=== PATIENT | female | born 1965 | race Caucasian/White ===

== ENCOUNTER 2017-02-14 11:11 | Emergency (ER) | payer BC, OTHER ==
[2017-02-14] MEDS ORDERED: Albuterol/Ipratropium 3.0-0.5 MG/3 ML Neb Soln NEB ONE (11:22)
--- NOTE | 2017-02-14 12:19 | EDM.PDOC ---
ED HPI GENERAL MEDICAL PROBLEM - General Chief Complaint: Respiratory Problem Stated Complaint: SHORTNESS OF BREATH Time Seen by Provider: 02/14/17 11:30 Source of Information: Reports: Patient, Provider History Limitations: Reports: No Limitations - History of Present Illness INITIAL COMMENTS - FREE TEXT/NARRATIVE: 51-year-old female who has had shortness of breath for the last 48 hours, nasal congestion and postnasal drip, last night felt so short of breath she felt like she was going to faint. This morning when she went into the clinic to be checked and just walking in from the parking lot made her so short of breath she was having trouble talking, felt very anxious so they sent her over to the emergency room. Her O2 saturations were 98%. She had no chest pain, jaw pain, nausea or referred pain to the arms or neck. She appeared somewhat pale, very anxious but did not have significantly increased respiratory rate. No fevers or chills, no nausea or vomiting. She has no other cold symptoms. Onset: Unknown/Unsure (Symptoms have been worsening over the past several days) Severity: Moderate Associated Symptoms: Reports: Other (Dizzy, near syncope). Denies: Fever/Chills , Headaches - Related Data Allergies Allergy/AdvReac Type Severity Reaction Status Date / Time ceftriaxone [From Rocephin] Allergy Hives Verified 02/14/17 11:24 Home Meds: Home Meds NK [No Known Home Meds] 02/14/17 [History] Past Medical History HEENT History: Reports: Impaired Vision - Infectious Disease History Infectious Disease History: Reports: Chicken Pox - Past Surgical History GI Surgical History: Reports: Cholecystectomy Female Surgical History: Reports: Section, D&C, Hysterectomy Social & Family History - Tobacco Use Smoking Status *Q: Never Smoker - Caffeine Use Caffeine Use: Reports: None - Recreational Drug Use Recreational Drug Use: No ED ROS GENERAL - Review of Systems Review Of Systems: See Below Constitutional: Reports: Malaise. Denies: Fever, Chills HEENT: Reports: Rhinitis. Denies: Eye Pain, Throat Pain, Vision Change Respiratory: Reports: Shortness of Breath, Wheezing. Denies: Cough Cardiovascular: Denies: Chest Pain, Edema, Palpitations GI/Abdominal: Denies: Nausea, Vomiting Skin: Reports: Pallor Neurological: Reports: Dizziness. Denies: Headache Psychiatric: Reports: Anxiety ED EXAM, GENERAL - Physical Exam Exam: See Below Exam Limited By: No Limitations General Appearance: Alert, Anxious, Mild Distress (Initially on arrival she acted very dyspneic and anxious, O2 saturations 98%) Throat/Mouth: Normal Inspection Head: Atraumatic Respiratory/Chest: Wheezing (Initial exam revealed bilateral scattered expiratory wheezes but underlying very good air movement to the bases) Cardiovascular: Regular Rate, Rhythm, Tachycardia GI/Abdominal: Non-Tender Extremities: No: Pedal Edema (No significant lower extremity edema is present) Neurological: Alert, Oriented Psychiatric: Anxious Skin Exam: Pallor Course - Vital Signs Last Recorded V/S: Last Vital Signs Temp 98.6 F 02/14/17 15:50 Pulse 71 02/14/17 16:25 Resp 18 02/14/17 15:50 BP 135/103 H 02/14/17 16:25 Pulse Ox 78 L 02/14/17 16:25 - Orders/Labs/Meds Labs: Laboratory Tests 02/14/17 02/14/17 02/14/17 Range/Units 12:19 12:21 12:21 WBC 10.2 (4.5-11.0) K/uL RBC 4.15 (3.30-5.50) M/uL Hgb 7.4 L (12.0-15.0) g/dL Hct 26.0 L (36.0-48.0) % MCV 63 L (80-98) fL MCH 18 L (27-31) pg MCHC 29 L (32-36) % Plt Count 347 (150-400) K/uL Neut % (Auto) 73 H (36-66) % Lymph % (Auto) 17 L (24-44) % Mckenzie % (Auto) 9 H (2-6) % Eos % (Auto) 1 L (2-4) % Baso % (Auto) 1 (0-1) % VBG pH (7.350-7.450) Sodium 141 (140-148) mmol/L Potassium 3.6 (3.6-5.2) mmol/L Chloride 106 (100-108) mmol/L Carbon Dioxide 23 (21-32) mmol/L Anion Gap 11.8 (5.0-14.0) mmol/L BUN 12 (7-18) mg/dL Creatinine 1.0 (0.6-1.0) mg/dL Est Cr Clr Drug Dosing 57.47 mL/min Estimated GFR (MDRD) 58 L (>60) Glucose 124 H (74-106) mg/dL Calcium 8.9 (8.5-10.1) mg/dL Iron (50-170) ug/dL TIBC (250-450) ug/dl % Saturation (20-55) % Ferritin (8-388) ng/ml Troponin I (0.000-0.056) ng/mL Blood Type A POSITIVE Gel Antibody Screen Negative Crossmatch See Detail 02/14/17 02/14/17 02/14/17 Range/Units 13:30 13:30 16:45 WBC (4.5-11.0) K/uL RBC (3.30-5.50) M/uL Hgb (12.0-15.0) g/dL Hct (36.0-48.0) % MCV (80-98) fL MCH (27-31) pg MCHC (32-36) % Plt Count (150-400) K/uL Neut % (Auto) (36-66) % Lymph % (Auto) (24-44) % Mckenzie % (Auto) (2-6) % Eos % (Auto) (2-4) % Baso % (Auto) (0-1) % VBG pH 6.996 L (7.350-7.450) Sodium (140-148) mmol/L Potassium (3.6-5.2) mmol/L Chloride (100-108) mmol/L Carbon Dioxide (21-32) mmol/L Anion Gap (5.0-14.0) mmol/L BUN (7-18) mg/dL Creatinine (0.6-1.0) mg/dL Est Cr Clr Drug Dosing mL/min Estimated GFR (MDRD) (>60) Glucose (74-106) mg/dL Calcium (8.5-10.1) mg/dL Iron 13 L (50-170) ug/dL TIBC 444 (250-450) ug/dl % Saturation 3 L (20-55) % Ferritin 7 L (8-388) ng/ml Troponin I (0.000-0.056) ng/mL Blood Type Gel Antibody Screen Crossmatch 02/14/17 Range/Units 16:55 WBC (4.5-11.0) K/uL RBC (3.30-5.50) M/uL Hgb (12.0-15.0) g/dL Hct (36.0-48.0) % MCV (80-98) fL MCH (27-31) pg MCHC (32-36) % Plt Count (150-400) K/uL Neut % (Auto) (36-66) % Lymph % (Auto) (24-44) % Mckenzie % (Auto) (2-6) % Eos % (Auto) (2-4) % Baso % (Auto) (0-1) % VBG pH (7.350-7.450) Sodium (140-148) mmol/L Potassium (3.6-5.2) mmol/L Chloride (100-108) mmol/L Carbon Dioxide (21-32) mmol/L Anion Gap (5.0-14.0) mmol/L BUN (7-18) mg/dL Creatinine (0.6-1.0) mg/dL Est Cr Clr Drug Dosing mL/min Estimated GFR (MDRD) (>60) Glucose (74-106) mg/dL Calcium (8.5-10.1) mg/dL Iron (50-170) ug/dL TIBC (250-450) ug/dl % Saturation (20-55) % Ferritin (8-388) ng/ml Troponin I 0.102 H* (0.000-0.056) ng/mL Blood Type Gel Antibody Screen Crossmatch Meds: Medications Discontinued Medications Generic Name Dose Route Start Last Admin Trade Name Senthilq PRN Reason Stop Dose Admin Albuterol/Ipratropium 3 ml 02/14/17 11:22 02/14/17 11:31 Duoneb 3.0-0.5 Mg/3 Ml NEB 02/14/17 11:23 3 ml ONETIME ONE Administration Epinephrine HCl 1 mg 02/14/17 16:31 02/14/17 16:31 Epinephrine 1:10,000 IV 02/14/17 16:32 1 mg ONETIME ONE Administration Epinephrine HCl 1 mg 02/14/17 16:34 02/14/17 16:34 Epinephrine 1:10,000 IV 02/14/17 16:35 1 mg ONETIME ONE Administration Epinephrine HCl 1 mg 02/14/17 16:38 02/14/17 16:38 Epinephrine 1:10,000 IV 02/14/17 16:39 1 mg ONETIME ONE Administration Epinephrine HCl 1 mg 02/14/17 16:42 02/14/17 16:42 Epinephrine 1:10,000 IV 02/14/17 16:43 1 mg ONETIME ONE Administration Epinephrine HCl 1 mg 02/14/17 16:45 02/14/17 16:45 Epinephrine 1:10,000 IV 02/14/17 16:46 1 mg ONETIME ONE Administration Epinephrine HCl 1 mg 02/14/17 16:48 02/14/17 16:48 Epinephrine 1:10,000 IV 02/14/17 16:49 1 mg ONETIME ONE Administration - Re-Assessments/Exams Free Text/Narrative Re-Assessment/Exam: 02/14/17 12:18 She appeared to have some component of hyperventilation and anxiety, however she was wheezing so a DuoNeb was given which cleared the wheezes. Over the next 30 minutes she calmed down, O2 saturations remained 98-100%, respiratory rate normalized, her color however continued to appear pale. A CBC and BMP were obtained as well as a two-view chest x-ray. 02/14/17 13:23 Two-view chest x-ray was normal. BMP was reassuring but CBC was fairly markedly abnormal with a hemoglobin of only 7.4. I will talk to the hospitalist service to see if I can that her admitted for workup and treatment of significant and symptomatic anemia. 02/14/17 13:31 After discussing her situation with the hospitalist service, 2 units of packed RBCs were typed and crossed, total iron binding and ferritin levels were obtained. Plan is to admit her for more evaluation. 02/14/17 17:22 Patient was preparing to be admitted to the floor when she had the urge to have bowel movement. She went into the bathroom and had a somewhat explosive bowel movement, became very lightheaded and pale and felt she was going to faint. She was then laid on the floor and became unresponsive for a brief amount of time. When she woke she was hyperventilating and anxious but her vital signs normalized. She remained in a sinus rhythm throughout. After several minutes she was ready to get up and get back on the bed, but as she was sitting up she apparently became lightheaded again and started complaining of chest pain. She again went unresponsive and I was called to the room. The manager video games at this time was clearly showing significant ST elevation. The patient was supplemented with oxygen, an oral airway was placed as she quickly stopped breathing. An Ambu bag was set up and she was given assisted respirations. She very rapidly lost all blood pressure despite still having a rhythm on the monitor. CPR was started, the Max chest compression was attached and the patient was given 1 mg of epinephrine IV. Within just a few minutes her pupils were already unreactive despite establishing an oral airway with endotracheal intubation and continuing with the Max. Throughout the next 30 minutes CPR was continued and we cycled through 7 doses of epinephrine. 3 IVs with fluids were running including an intraosseous in the left lower extremity. In spite of the aggressive resuscitation the patient did not respond to treatment and was only responding to the acute effects of the epinephrine. It appears she obviously had a large [place]. A brief abdominal ultrasound was done during resuscitation and showed no evidence of an enlarged aorta. Eventually the resuscitation efforts were stopped. Postmortem the patient returned with a troponin of 0.10, this was drawn after roughly 40 minutes of CPR. pH was .[id number] Departure - Departure Time of Disposition: 19:23 Disposition: 20 Clinical Impression: Acute [place] Anemia Qualifiers: Anemia type: iron deficiency Iron deficiency anemia type: chronic blood loss Qualified Code(s): D50.0 - Iron deficiency anemia secondary to blood loss ( chronic) Reactive airway disease Qualifiers: Asthma severity: mild Asthma persistence: intermittent - Discharge Information Referrals: Raj Guzmán MD [Primary Care Provider] - Forms: ED Department Discharge Care Plan Goals: Please see course of treatment.
--- NOTE | 2017-02-14 12:37 | CR ---
Chest 2V FINDINGS: The heart and vascular structures are normal in appearance. No infiltrates or effusions are demonstrated. The skeletal structures are unremarkable. IMPRESSION: Negative exam.
[2017-02-14] MEDS ORDERED: LORazepam 2 MG/ML MDV IVPUSH ONE (16:20)
[2017-02-14] MEDS ORDERED: EPINEPHrine 1:10,000 1 MG/10 ML Syringe IV ONE ×6 (16:31→16:48)
--- NOTE | 2017-02-14 17:05 | PCM.HP ---
H&P History of Present Illness - General Date of Service: 02/14/17 Admit Problem/Dx: Admission Diagnosis/Problem Admission Diagnosis/Problem Anemia Source of Information: Patient History Limitations: Reports: No Limitations - History of Present Illness Initial Comments - Free Text/Narative: Ms. Huerta was a 51-year-old woman who presented to the emergency department with symptoms of weakness, lightheadedness, and shortness of breath with activity. Laboratory studies were obtained and she was found to have a hemoglobin of 7.4 with an MCV of 63. Iron studies were obtained and were found to be significantly low. Was felt very likely that her symptoms were related to anemia and probable chronic GI blood loss. At the time she was seen in the emergency department she denied recent symptoms or current symptoms of chest pain or pressure. She was asymptomatic while sitting at rest with stable vital signs. First unit of blood was started while she was in the emergency department which she tolerated initially without significant difficulty. She felt that she had to have a bowel movement and was assisted into the bathroom, she experienced a large loose bowel movement, there was no evidence of blood in the stool. When she stood up off of the toilet felt weak and lightheaded and experienced a syncopal episode. Initially her systolic pressure was low at 84 but within a very short period of time assured improved to 140. While on the floor she did experience hyperventilation after that seemed to settle down she then reported symptoms of severe chest pain and had a second episode of unresponsiveness. She was found to have no palpable pulse and CPR was initiated and a code was called. She was intubated by Mr. Garcia from the anesthesia service and received ongoing CPR. She was given several doses of intravenous epinephrine but despite adequate heart rate and adequate oxygenation there were no palpable pulses or obtainable blood pressure. She was felt to have PEA likely secondary to a large acute myocardial infarction. Ongoing attempts with continued CPR and ventilation were unsuccessful in obtaining blood pressure or palpable pulse, resuscitation was discontinued and she was declared . Monitor strips on the initial arrest showed significant ST segment elevation. - Related Data Allergies/Adverse Reactions: Allergies Allergy/AdvReac Type Severity Reaction Status Date / Time ceftriaxone [From Rocephin] Allergy Hives Verified 02/14/17 11:24 Home Medications: Home Meds NK [No Known Home Meds] 02/14/17 [History] Past Medical History HEENT History: Reports: Impaired Vision - Infectious Disease History Infectious Disease History: Reports: Chicken Pox - Past Surgical History GI Surgical History: Reports: Cholecystectomy Female Surgical History: Reports: Section, D&C, Hysterectomy Social & Family History - Tobacco Use Smoking Status *Q: Never Smoker - Caffeine Use Caffeine Use: Reports: None - Recreational Drug Use Recreational Drug Use: No H&P Review of Systems - Review of Systems: Review Of Systems: See Below General: Reports: Weakness. Denies: Fever, Chills HEENT: Reports: No Symptoms Pulmonary: Reports: Shortness of Breath. Denies: Wheezing, Pleuritic Chest Pain , Cough, Sputum, Hemoptysis Cardiovascular: Reports: Dyspnea on Exertion, Lightheadedness. Denies: Chest Pain, Palpitations, Orthopnea, PND, Edema Gastrointestinal: Denies: Abdominal Pain, Black Stool, Bloody Stool, Constipation, Decreased Appetite, Difficulty Swallowing, Nausea, Vomiting Genitourinary: Reports: No Symptoms Musculoskeletal: Reports: No Symptoms Skin: Reports: No Symptoms Psychiatric: Reports: No Symptoms Neurological: Reports: No Symptoms Hematologic/Lymphatic: Reports: No Symptoms Immunologic: Reports: No Symptoms Exam - Exam Exam: See Below - Vital Signs Vital Signs: Last Vital Signs Temp 98.6 F 02/14/17 15:50 Pulse 116 H 02/14/17 15:50 Resp 18 02/14/17 15:50 BP 142/88 H 02/14/17 15:50 Pulse Ox 97 02/14/17 15:50 Weight: 237 lb - Exam General: Alert, Oriented, Cooperative HEENT: Conjunctiva Clear, Hearing Intact, Mucosa Moist & Bour[place], Normal Nasal Septum, Posterior Pharynx Clear, Pupils Equal Neck: Supple, Trachea Midline, +2 Carotid Pulse wo Bruit Lungs: Clear to Auscultation, Normal Respiratory Effort Cardiovascular: Regular Rate, Regular Rhythm, Normal S1, Normal S2. No: Systolic Murmur, Diastolic Murmur GI/Abdominal Exam: Normal Bowel Sounds, Soft, Non-Tender, No Organomegaly, No Distention Back Exam: Normal Inspection, Full Range of Motion Extremities: Normal Inspection, Normal Range of Motion, Non-Tender, No Pedal Edema Skin: Warm, Dry, Intact Neurological: Cranial Nerves Intact, Strength Equal Bilateral, Normal Speech, Normal Tone, Sensation Intact. No: Focal Deficit Neuro Extensive - Mental Status: Alert, Oriented x3, Normal Mood/Affect, Normal Cognition, Memory Intact - Patient Data Lab Results Last 24 hrs: Laboratory Results - last 24 hr 02/14/17 02/14/17 02/14/17 Range/Units 12:19 12:21 12:21 WBC 10.2 (4.5-11.0) K/uL RBC 4.15 (3.30-5.50) M/uL Hgb 7.4 L (12.0-15.0) g/dL Hct 26.0 L (36.0-48.0) % MCV 63 L (80-98) fL MCH 18 L (27-31) pg MCHC 29 L (32-36) % Plt Count 347 (150-400) K/uL Neut % (Auto) 73 H (36-66) % Lymph % (Auto) 17 L (24-44) % [place] % (Auto) 9 H (2-6) % Eos % (Auto) 1 L (2-4) % Baso % (Auto) 1 (0-1) % VBG pH (7.350-7.450) Sodium 141 (140-148) mmol/L Potassium 3.6 (3.6-5.2) mmol/L Chloride 106 (100-108) mmol/L Carbon Dioxide 23 (21-32) mmol/L Anion Gap 11.8 (5.0-14.0) mmol/L BUN 12 (7-18) mg/dL Creatinine 1.0 (0.6-1.0) mg/dL Est Cr Clr Drug Dosing 57.47 mL/min Estimated GFR (MDRD) 58 L (>60) Glucose 124 H (74-106) mg/dL Calcium 8.9 (8.5-10.1) mg/dL Iron (50-170) ug/dL TIBC (250-450) ug/dl % Saturation (20-55) % Ferritin (8-388) ng/ml Blood Type A POSITIVE Gel Antibody Screen Negative Crossmatch See Detail 02/14/17 02/14/17 02/14/17 Range/Units 13:30 13:30 16:45 WBC (4.5-11.0) K/uL RBC (3.30-5.50) M/uL Hgb (12.0-15.0) g/dL Hct (36.0-48.0) % MCV (80-98) fL MCH (27-31) pg MCHC (32-36) % Plt Count (150-400) K/uL Neut % (Auto) (36-66) % Lymph % (Auto) (24-44) % [place] % (Auto) (2-6) % Eos % (Auto) (2-4) % Baso % (Auto) (0-1) % VBG pH 6.996 L (7.350-7.450) Sodium (140-148) mmol/L Potassium (3.6-5.2) mmol/L Chloride (100-108) mmol/L Carbon Dioxide (21-32) mmol/L Anion Gap (5.0-14.0) mmol/L BUN (7-18) mg/dL Creatinine (0.6-1.0) mg/dL Est Cr Clr Drug Dosing mL/min Estimated GFR (MDRD) (>60) Glucose (74-106) mg/dL Calcium (8.5-10.1) mg/dL Iron 13 L (50-170) ug/dL TIBC 444 (250-450) ug/dl % Saturation 3 L (20-55) % Ferritin 7 L (8-388) ng/ml Blood Type Gel Antibody Screen Crossmatch Result Diagrams: 02/14/17 12:21 02/14/17 12:21 *Q Meaningful Use (ADM) - VTE *Q VTE Criteria *Q: - VTE Risk Assess *Q Each Risk Factor Represents 1 Point: Age 41 - 59 years, Obesity ( BMI > 25 kg/m2 ) Total Score 1 Point Risk Factors: 2 Each Risk Factor Represents 2 Points: None Total Score 2 Point Risk Factors: 0 Each Risk Factor Represents 3 Points: None Total Score 3 Point Risk Factors: 0 Each Risk Factor Represents 5 Points: None Total Score 5 Point Risk Factors: 0 Venous Thromboembolism Risk Factor Score *Q: 2 - Stroke *Q Stroke Criteria *Q: - AMI *Q AMI Criteria *Q: Problem List Initiated/Reviewed/Updated: Yes Orders Last 24hrs: Active Orders 24 hr Category Date Time Status Patient Status Manage Transfer [TRANSFER] Routine ADT 02/14/17 15:56 Active RT Aerosol Therapy [RC] ASDIRECTED Care 02/14/17 11:22 Active RED BLOOD CELLS LP [BBK] Stat Lab 02/14/17 12:19 Results TROPONIN I [CHEM] Routine Lab 02/14/17 16:55 Received TYPE AND SCREEN [BBK] Stat Lab 02/14/17 12:19 Results Resuscitation Status Routine Resus Stat 02/14/17 16:13 Ordered Assessment/Plan Comment:: ASSESSMENT AND PLAN CARDIAC ARREST WITH PULSELESS ELECTRICAL ACTIVITY-just before the patient arrest that she reported onset of severe substernal chest pain. Telemetry showed evidence of marked ST segment elevation. Likely secondary to large myocardial infarction. Rhythm was maintained with use of epinephrine and she was intubated with adequate oxygenation. Pulmonary embolism unlikely and she had shown no evidence of severe GI blood loss. She was given IV fluids during the code and several doses of IV epinephrine. Resuscitation efforts were unsuccessful in obtaining palpable pulse or blood pressure. MICROCYTIC ANEMIA-hemoglobin on initial presentation was 7.4 with an MCV of 63, ferritin and iron levels were low. Was felt that she had likely experienced chronic GI blood loss causing these findings. The plan had been to proceed with transfusion of 2 units of red blood cells and IV iron therapy. She would've required upper and lower GI endoscopy for further evaluation of the anemia.
== END 2017-02-15 08:30 | disposition expired ==
LOC: JP.ED 11:11
DX: I21.9 Acute myocardial infarction, unspecified (principal); J45.20 Mild intermittent asthma, uncomplicated; D50.0 Iron deficiency anemia secondary to blood loss (chronic); Z88.1 Allergy status to other antibiotic agents
CPT/HCPCS: 36415; 36430; 71020; 80048; 82728; 82800; 83550; 84484; 85025; 86850; 86900; 86901; 86920; 86922; 92950; 94640; 96374; 99285; J0171; J7620; P9016